=== PATIENT | female | born 1940 | race Caucasian/White ===

== ENCOUNTER 2016-11-06 08:54 | Outpatient (CLI) | payer MEDICARE, OTHER ==
[~2016-11-06] VITALS: Ht 154.9 cm; Wt 57.3 kg
[~2016-11-06 08:54] MED LIST: ACCUPRIL20 MG PO; ECOTRIN325 MG PO; HYDROCHLOROTHIA25 MG PO; PLAVIX75 MG PO; PREDNISONE1 MG PO; TENORMIN25 MG PO; ULTRAM50 MG PO
[2016-11-06] MEDS ORDERED: ZETIA10 MG PO (09:26)
[2016-11-06 09:33] VITALS: BP 122/60; Ht 154.9 cm; Wt 57.3 kg
--- NOTE | 2016-11-06 13:09 | NUR ---
1215--IV DC'D. DISCHARGE INSTRUCTIONS GIVEN, PT VERBALIZES UNDERSTANDING. PT OFF UNIT VIA WC. MIMI MITCHELL
== END 2016-11-06 12:15 | disposition home or self-care (01) ==
LOC: D.OPS 08:54
DX: Z95.2 Presence of prosthetic heart valve (principal)

== ENCOUNTER 2017-06-19 11:07 | Outpatient (CLI) | payer MEDICARE, OTHER ==
[2016-11-06 09:33] VITALS: BMI 23.8
--- NOTE | ~2017-06-19 | HEMODYNAMI ---
PATIENT:ELEONORA ALMEIDA MEDICAL RECORD: [id number] : 36 LOCATION:[facility] ADMISSION DATE: 06/19/17 Generatedon:06/19/201714:40 Patient name: ELEONORA ALMEIDA Patient #: [id number] : 1940 Date of study: 06/19/2017 Page: Of Hemodynamic Procedure Report Patient Data Patient Demographics Procedure consent was obtained First Name: ELEONORA Gender: Female Last Name: JUAN PABLO : 1940 Middle Initial: JOSE Age: 77 year(s) Patient #: [id number] Race: SSN: [id number] Additional ID: [id number] Contact details [address]: [address] [place] [address] State: [place] City: [place] Zip code: [address] Past Medical History Allergies Allergen Reaction Date Comments Reported Other allergy 06/19/2017 Statins, Sulfa, Vasotec, Zocor Admission Admission Data Admission Date: 06/19/2017 Admission Time: 11:07 Arrival Date: 06/19/2017 Arrival Time: 13:30 Admit Source: Other Insurance Payor: Medicare Height (in.): 60 BSA: 1.56 (m2) Height (cm.): 152.4 BMI: 25.58 (kg/m2) Weight (lbs.): 131 Weight (kg.): 59.42 Lab Results Lab Result Date: 06/19/2017 Lab Result Time: 0:00 Biochemistry Name Units Result Min Max BUN mg/dl 20 --(----)*- 7 18 Creatinine mg/dl 0.8 --(-*--)-- 0.6 1.3 CBC Name Units Result Min Max Hemoglobin g/dl 13.1 -*(----)-- 13.5 17.5 Procedure Procedure Types Cath Procedure Diagnostic Procedure LHC LHC w/Coronaries Miscellaneous Procedures Moderate Sedation up to 30 minutes Procedure Description Procedure Date Procedure Date: 06/19/2017 Procedure Start Time: 14:25 Procedure End Time: 14:37 Procedure Staff Name Function Luis Carlos Claudio MD Performing Physician Marisela Day RT Scrub Julio Bell RN Nurse Rox Barth RT Monitor Indication Angina Procedure Data Cath Procedure Fluoroscopy Diagnostic fluoroscopy Total fluoroscopy Time: 1.5 time: 1.5 min min Diagnostic fluoroscopy Total fluoroscopy dose: 177 dose: 177 mGy mGy Contrast Material Contrast Material Type Amount (ml) Isovue 300 55 Entry Location Entry Primary Successful Side Size Upsize Upsize Entry Closure Succes sful Closure Location (Fr) 1 (Fr) 2 (Fr) Remarks Device Remarks Femoral Right 5 Fr Exoseal artery Estimated blood loss: 5 ml Diagnostic catheters Device Type Used For End Catheter Placement Diagnostic Infinity 5Fr Left Coronary AL 2 catheter Angiography Cordis 5Fr 3DRC Catheter Right Coronary (MP) Angiography Cordis 5Fr Pigtail LV Angiography Catheter (MP) Procedure Complications No complications Procedure Medications Medication Administration Route Dosage Oxygen NC 2 l/min Lidocaine 2% added to field 20 Heparin Flush Bag added to field 2 bags (1000units/500ml NS) 0.9% NaCl I.V. 100 ml/hr Versed I.V. 1 mg Fentanyl I.V. 50 mcg Versed I.V. 0.5 mg Fentanyl I.V. 25 mcg Hemodynamics Rest BSA: 1.56 (m2) HGB: 13.1 (g/dl) O2 Consumption: Estimated: 137.87 (ml/min) O2 Co nsumption indexed: Estimated:88.38 (ml/min/m) Heart Rate: 65 (bpm) Pressure Samples Time Site Value (mmHg) Purpose Heart Use Rate(bpm) 14:33 LV 144/57,60 Snapshot 75 Snapshots Pre Cath Intra NCS Post Cath Vital Signs Time Heart Resp SPO2 NIBP (mmHg) Rhythm Pain Sedation Rate (ipm) (%) Status Level (bpm) 14:08:10 67 13 99 134/54(104) NSR 0 (11) 10(A) , No pain 14:13:25 86 16 100 126/65(99) NSR 0 (11) 10(A) , No pain 14:17:43 72 17 100 122/53(92) NSR 0 (11) 10(A) , No pain 14:21:59 72 16 99 124/52(105) NSR 0 (11) 10(A) , No pain 14:26:16 73 15 99 106/54(77) NSR 0 (11) 9(A) , No pain 14:30:28 74 18 100 126/50(102) NSR 0 (11) 9(A) , No pain 14:34:46 75 16 100 134/53(93) NSR 0 (11) 9(A) , No pain 14:39:36 72 16 100 128/49(96) NSR 0 (11) 10(A) , No pain Medications Time Medication Route Dose Verified Delivered Reason Notes Effe ctiveness by by 14:16:10 Oxygen NC 2 Luis Carlos Buffie used for l/min González Bell RN procedure 14:16:18 Lidocaine 2% added 20ml Luis Carlos Luis Carlos for local to vial González Claudio MD anesthetic field 14:16:27 Heparin Flush added 2 Luis Carlos Luis Carlos used for Bag to bags González Claudio MD procedure (1000units/500ml field NS) 14:16:38 0.9% NaCl I.V. 100 Luis Carlos Buffie Per ml/hr González Bell RN physician 14:21:21 Versed I.V. 1 mg Luis Carlos Buffie for González Bell RN sedation 14:21:27 Fentanyl I.V. 50 Luis Carlos Buffie for mcg González Bell RN sedation 14:30:07 Versed I.V. 0.5 Luis Carlos Buffie for mg González Bell RN sedation 14:30:10 Fentanyl I.V. 25 Luis Carlos Buffie for mcg González Bell RN sedation Procedure Log Time Note 13:45:01 Julio Bell RN sent for patient. Start room use. 13:56:16 Informed consent obtained and on chart 13:58:20 Patient allergic to Other allergyStatins, Sulfa, Vasotec, Zocor 13:58:23 Admit Source: Other 13:58:27 Arrival Date: 06/19/2017 1:30:00 PM 13:58:33 Insurance Payor : Medicare 13:58:47 Patient Height : 152.4 cm 13:58:51 Patient Weight : 59.42 kg 14:00:37 Lab Result : BUN 20 mg/dl 14:00:37 Lab Result : Hemoglobin 13.1 g/dl 14:00:37 Lab Result : Creatinine 0.8 mg/dl 14:00:42 Diagnostic Cath Status : Elective 14:00:58 Indication : Angina 14:01:10 Time tracking: Regular hours 14:01:13 Plan of Care:Hemodynamics will remain stable., Cardiac rhythm will remain stable., Comfort level will be maintained., Respiratory function will remain adequate., Patient/ family verbilizes understanding of procedure., Procedure tolerated without complication., Recovers from procedure without complications.. 14:01:19 Patient received from Pre/Post Procedure Room to [facility] 2 Alert and oriented. Tansferred to table in Supine position. 14:01:20 Warm blankets applied, and huy hugger turned on for patient comfort. 14:01:20 Correct patient and procedure confirmed by team. 14:01:21 ECG and BP/O2 sat monitors applied to patient. 14:06:58 Vital chart was started 14:06:59 Baseline sample Acquired. 14:07:03 Rhythm: sinus rhythm 14:07:05 Full Disclosure recording started 14:08:23 H&P Date Dictated: 05/30/2017 Within 30 days and on chart., H&P Addendum completed by physician on day of procedure. (MUST COMPLETE FOR ALL OUTPATIENTS). 14:08:25 Pre-procedure instructions explained to patient. 14:08:25 Pre-op teaching completed and patient verbalized understanding. 14:08:26 Family in waiting room. 14:08:29 Patient NPO since Midnight. 14:08:34 Is the patient allergic to Iodine/contrast media? No. 14:08:35 Was the patient premedicated? No 14:08:39 Is patient on blood thinner?No 14:08:43 Patient diabetic? No. 14:08:45 Patient not . Patient is over age 55. 14:08:47 Previous problem with sedation/anesthesia? No ? 14:08:50 Snore? Yes 14:08:51 Sleep apnea? Yes 14:08:53 Deviated septum? No 14:08:54 Opens mouth fully? Yes 14:08:55 Sticks out tongue? Yes 14:08:58 Airway obstruction? No ? 14:09:01 Dentures? Yes ? 14:09:04 Pre procedure: right dorsailis pedis pulse 1+ Palpable, but thready & weak; easily obliterated 14:09:06 Pre procedure: left dorsailis pedis pulse 1+ Palpable, but thready & weak; easily obliterated 14::09 Patient pain scale 0/10 ?. 14:09:33 IV patent on arrival in left forearm with 0.9% NaCl at O. 14::36 Lab results completed and on chart. 14:09:40 Right groin area was prepped with chlora-prep and draped in sterile fashion 14:: Alarms reviewed by R. N. 14:: Sharps counted by scrub and verified by R.N. 14::33 Physician arrived 14:: --------ALL STOP TIME OUT------ 14::34 Final Timeout: patient, procedure, and site verified with staff and physician. All members of the team are in agreement. 14:11:37 Right groin site verified by team. 14::40 Physical assessment completed. ASA score P 2 - A patient with mild systemic disease as per Luis Carlos Claudio MD. 14:11:44 Sedation plan: IV Moderate Sedation Versed, Fentanyl 14:11:55 Use device set Femoral Dx 14:11:56 Acist Syringe opened to sterile field. 14:11:57 Bag Decanter opened to sterile field. 14:11:57 Medline Cath Pack opened to sterile field. 14:11:58 Terumo 5Fr [place] Sheath opened to sterile field. 14:11:58 St Enrique 260cm J .035 wire opened to sterile field. 14:11:59 Acist Hand Control opened to sterile field. 14:11:59 Acist Manifold opened to sterile field. 14:12:00 Diagnostic Infinity 5Fr Multipack catheter opened to sterile field. 14:12:00 Tegaderm 4 x 4 opened to sterile field. 14:16:10 Oxygen 2 l/min NC was administered by Julio Bell RN; used for procedure; 14:16:18 Lidocaine 2% 20ml vial added to field was administered by Luis Carlos Claudio MD; for local anesthetic; 14:16:27 Heparin Flush Bag (1000units/500ml NS) 2 bags added to field was administered by Luis Carlos Claudio MD; used for procedure; 14:16:38 0.9% NaCl 100 ml/hr I.V. was administered by Julio Bell RN; Per physician; 14:19:58 Zero performed for pressure channel P1 14:20:12 Zero performed for pressure channel P1 14::21 Versed 1 mg I.V. was administered by Julio Bell RN; for sedation; 14::27 Fentanyl 50 mcg I.V. was administered by Julio Bell RN; for sedation; 14:25:48 Procedure started. 14:25:52 Local anesthetic to right femoral artery with Lidocaine 2% by Luis Carlos Claudio MD.INITIAL ACCESS ONLY 14:26:00 A 5 Fr sheath was inserted into the Right Femoral artery 14:29:28 A Diagnostic Infinity 5Fr AL 2 catheter was advanced over the wire and used for Left Coronary Angiography. 14:30:04 LCA angiography performed. 14:30:07 Versed 0.5 mg I.V. was administered by Julio Bell RN; for sedation; 14:30:07 Injector settings: Ml/sec: 3, Volume: 6, 14:30:10 Fentanyl 25 mcg I.V. was administered by Julio Bell RN; for sedation; 14:31:06 Catheter removed. 14:31:11 A Cordis 5Fr 3DRC Catheter (MP) was advanced over the wire and used for Right Coronary Angiography. 14:32:07 RCA angiography performed. 14:32:10 Injector settings: Ml/sec: 3, Volume: 6, 14:32:32 Catheter removed. 14:32:38 A Cordis 5Fr Pigtail Catheter (MP) was advanced over the wire and used for LV Angiography. 14:33:58 LV hemodynamics recorded. 14:33:59 LV gram done using FUENTES 14:34:03 Injector settings: Ml/sec: 5, Volume: 15, 14:34:48 EF : 55 % 14:34:55 Catheter removed. 14:35:06 Cordis 5Fr Exoseal opened to sterile field. 14:35:26 Sheath removed intact; hemostasis achieved with Exoseal to the Right Femoral artery. 14:35:57 Procedure ended.(Physican Out) 14:36:37 Fluoroscopy time 01.50 minutes. 14:36:41 Fluoroscopy dose: 177 mGy 14:36:41 Flurop Dose total: 177 14:36:46 Contrast amount:Isovue 300 55ml. 14:36:47 Sharps counted by scrub and verified by R.N. 14:36:49 Insertion/operative site no bleeding no hematoma. 14:36:52 Post-op/insertion site Right Femoral artery dressed using a 4 x 4 and Tegaderm. 14:36:54 Post right femoral artery:stable 14:36:56 Post Procedure Pulses reassessed and unchanged 14:36:58 Post procedure rhythm: unchanged. 14:37:01 Estimated blood loss: 5 ml 14:37:02 Post procedure instruction explained to patient.Patient verbalizes understanding. 14:37:02 Patient needs reinforcement of post procedure teaching. 14:37:19 Procedure type changed to Cath procedure, Diagnostic procedure, LHC, LHC w/Coronaries, Miscellaneous Procedures, Moderate Sedation up to 30 minutes 14:37:21 Procedure and supply charges have been captured, reviewed, submitted and are correct. 14:37:26 Procedure Complication : No complications 14:37:28 Vital chart was stopped 14:37:28 See physician's report for complete and final results. 14:37:30 Report given to Pre/Post Procedure Room. 14:37:38 Patient transfered to Pre/Post Procedure Room with Stretcher. 14:37:40 Procedure ended. 14:37:40 Full Disclosure recording stopped 14:37:43 End room use (Document Last) Device Usage Item Name Manufacture Quantity Catalog Hospital Part Current Minimal Lo t# / Number Charge Number Stock Stock Serial# Code Acist Acist 1 [id number] [id number] [id number] 20 Syringe [employer] Bag Microtek 1 2002S 501991 93419 [id number] 5 [employer] Medline Cardinal 1 [id number] [id number] 02490 086570 5 Cath Pack Health Terumo 5Fr Terumo 1 [id number] 992826 134590 [address] Enrique 1 [id number] 433551 323969 358536 30 260cm J .035 wire Acist Hand Acist 1 96568 278226 781034 858470 5 Control [employer] Inc Acist Acist 1 15945 942202 285432 915287 5 Manifold [employer] Diagnostic Cardinal 1 [id number] 240854 42022 156126 30 ShopSocially 5Fr Multipack catheter Tegaderm 4 3M 1 1626W 349676 030204 630258 5 x 4 Diagnostic Cardinal 1 [id number] 348278 532606 593171 15 ShopSocially 5Fr AL 2 catheter Cordis 5Fr Cardinal 1 [id number] 5 3DRC Health Catheter (MP) Cordis 5Fr Cardinal 1 [id number] 5 Pigtail Health Catheter (MP) Cordis 5Fr Cardinal 1 EX500 862625 003766 199430 10 [facility] Health Signature Audit [place] Stage Time Signature Unsigned Intra-Procedure 06/19/2017 Rox Barth 2:40:09 PM RT(R) Signatures Monitor : Rox Barth RT Signature : Date : Time : [place] [id number] [facility] [address]
[~2017-06-19 11:07] MED LIST changes: +ZETIA10 MG PO
[2017-06-19] MEDS ORDERED: NORVASC5 MG PO (11:41)
[2017-06-19] MEDS ORDERED: PROTONIX40 MG PO (11:41)
[2017-06-19] MEDS ORDERED: FLUTICASONE PRO16 GM NASAL (11:42)
[2017-06-19] MEDS ORDERED: CLARITIN 10 MG10 MG PO (11:42)
[2017-06-19 12:04] LABS: BASOPHILS 0.7 % (0-2); EOSINOPHILS 2.4 % (0-7); HEMATOCRIT 38.3 % (36.0-48.0); HEMOGLOBIN 13.1 g/dL (12-16); LYMPHOCYTES 27.8 % (15-50); MCH 30.8 pg (26.0-34.0); MCHC 34.2 g/dL (31.0-37.0); MCV 90.1 fL (80.0-100.0); MEAN PLATELET VOLUME 10.3 fL (7.4-10.4); MONOCYTES 10.6 % (2-11); NEUTROPHILS 58.5 % (40-80); PLATELET COUNT 194 10x3/uL (130-400); RBC 4.25 10x6/uL (4.00-5.40); RDW 12.6 % (11.5-14.5); WBC 5.5 10x3/uL (4.8-10.8)
[2017-06-19 12:19] LABS: ANION GAP 11.4 mmol/L (8-16); CALCIUM 9.2 mg/dL (8.5-10.1); CARBON DIOXIDE 33.6 mmol/L (21.0-32.0); CREATININE - SERUM 0.8 mg/dL (0.6-1.3)
--- NOTE | 2017-06-19 15:00 | NUR ---
RIGHT GROIN CDI, NO BLEEDING OR HEMATOMA AT SITE. SOFT TO TOUCH, IV INFUSING PER GRAVITY- NO SWELLING AT SITE
--- NOTE | 2017-06-19 15:30 | NUR ---
NO CHANGE IN RIGHT GROIN, VSS, FAMILY AT SIDE
--- NOTE | 2017-06-19 16:55 | NUR ---
IV D'C WITH CATH TIP INTACT, WRITTEN AND VERBAL D'C INSTRUCTIONS GIVEN AND VERBAL UNDERSTANDING NOTED, D'C HOME WITH
== END 2017-06-19 17:00 | disposition home or self-care (01) ==
LOC: D.CATH 11:07
PROVIDERS: Internal Medicine Cardiovascular Disease
DX: I25.119 Atherosclerotic heart disease of native coronary artery with unspecified angina pectoris (principal); Z95.5 Presence of coronary angioplasty implant and graft; Z95.2 Presence of prosthetic heart valve; Z01.812 Encounter for preprocedural laboratory examination

== ENCOUNTER 2017-12-10 09:01 | Outpatient (CLI) | payer MEDICARE, OTHER ==
[~2017-12-10] VITALS: Ht 154.9 cm; Wt 58.2 kg
[~2017-12-10 09:01] MED LIST changes: +CLARITIN 10 MG10 MG PO; +FLUTICASONE PRO16 GM NASAL; +NORVASC5 MG PO; +PROTONIX40 MG PO
[2017-12-10 09:49] VITALS: BP 115/48; Ht 154.9 cm; Wt 58.2 kg
== END 2017-12-10 12:19 | disposition home or self-care (01) ==
LOC: D.OPS 09:01
DX: Z95.2 Presence of prosthetic heart valve (principal)

== ENCOUNTER 2018-10-02 10:25 | Outpatient (CLI) | payer MEDICARE, OTHER ==
[~2018-10-02] VITALS: Ht 152.4 cm; Wt 58.2 kg
[2018-10-02 12:17] VITALS: BP 127/57; Ht 152.4 cm; Wt 58.2 kg
== END 2018-10-02 13:40 | disposition home or self-care (01) ==
LOC: D.OPS 10:25
DX: Z95.2 Presence of prosthetic heart valve (principal)

== ENCOUNTER → 2019-02-13 10:28 | Outpatient (CLI) | payer MEDICARE, BC ==
[2018-10-02 12:17] VITALS: BMI 25.0
== END | disposition home or self-care (01) ==
LOC: D.HCCARDIO 10:28
PROVIDERS: ATTEND Internal Medicine Cardiovascular Disease
DX: I25.10 Atherosclerotic heart disease of native coronary artery without angina pectoris (principal)

== ENCOUNTER 2019-03-05 11:21 | Outpatient (CLI) | payer MEDICARE, BC ==
[~2019-03-05] VITALS: Ht 152.4 cm; Wt 56.8 kg
--- NOTE | ~2019-03-05 | HEMODYNAMI ---
PATIENT:ELEONORA ALMEIDA MEDICAL RECORD: [id number] : 36 LOCATION:[facility] ADMISSION DATE: 03/05/19 Generatedon:03/05/201914:37 Patient name: ELEONORA ALMEIDA Patient #: [id number] : 1940 Date of study: 03/05/2019 Page: Of Hemodynamic Procedure Report Patient Data Patient Demographics Procedure consent was obtained First Name: ELEONORA Gender: Female Last Name: JUAN PABLO : 1940 Middle Initial: JOSE Age: 79 year(s) Patient #: [id number] Race: SSN: [id number] Additional ID: [id number] Contact details [address]: [address] [place] [address] State: [place] City: [place] Zip code: [address] Past Medical History Allergies Allergen Reaction Date Comments Reported Other allergy 06/19/2017 Statins, Sulfa, Vasotec, Zocor Admission Admission Data Admission Date: 03/05/2019 Admission Time: 11:21 Lab Results Lab Result Date: 03/05/2019 Lab Result Time: 0:00 Biochemistry Name Units Result Min Max BUN mg/dl 23 --(----)-* 7 18 Creatinine mg/dl 0.9 --(-*--)-- 0.6 1.3 CBC Name Units Result Min Max Hemoglobin g/dl 12.4 *-(----)-- 13.5 17.5 Procedure Procedure Types Cath Procedure Diagnostic Procedure LHC LHC w/Coronaries Procedure Description Procedure Date Procedure Date: 03/05/2019 Procedure Start Time: 14:25 Procedure End Time: 14:36 Procedure Staff Name Function Luis Carlos Claudio MD Performing Physician Marisela Day RT Monitor Aliyah Almeida RN Nurse Rox Barth RT Scrub Procedure Data Cath Procedure Fluoroscopy Diagnostic fluoroscopy Total fluoroscopy Time: 2.6 time: 2.6 min min Diagnostic fluoroscopy Total fluoroscopy dose: 272 dose: 272 mGy mGy Contrast Material Contrast Material Type Amount (ml) Isovue 300 65 Entry Location Entry Primary Successful Side Size Upsize Upsize Entry Closure Succes sful Closure Location (Fr) 1 (Fr) 2 (Fr) Remarks Device Remarks Femoral Right 5 Fr Exoseal artery Estimated blood loss: 10 ml Diagnostic catheters Device Type Used For End Catheter Placement MULTIPACK Pigtail 5 Fr Procedure catheter MULTIPACK JL 4.0 5Fr Procedure catheter MULTIPACK 3DRC 5Fr Procedure catheter Procedure Complications No complications Procedure Medications Medication Administration Route Dosage 0.9% NaCl I.V. 100 ml/hr Oxygen etCO2 Nasal cannula 2 l/min Lidocaine 2% added to field 20 Heparin Flush Bag added to field 2 bags (1000units/500ml NS) Versed I.V. 2 mg Fentanyl I.V. 50 mcg Fentanyl I.V. 50 mcg Hemodynamics Rest HGB: 12.4 (g/dl) Heart Rate: 82 (bpm) Snapshots Pre Cath Intra NCS Post Cath Vital Signs Time Heart Resp SPO2 etCO2 NIBP (mmHg) Rhythm Pain Sedation Rate (ipm) (%) (mmHg) Status Level (bpm) 14:10:03 80 19 99 26.1 146/72(90) NSR 0 (11) 10(A) , No pain 14:14:22 83 17 99 26.8 152/62(104) NSR 0 (11) 10(A) , No pain 14:18:46 66 11 98 17.9 123/47(78) NSR 0 (11) 10(A) , No pain 14:22:58 70 13 99 17.8 125/56(90) NSR 0 (11) 10(A) , No pain 14:27:12 66 11 99 18.96 138/54(101) NSR 0 (11) 9(A) , No pain 14:31:30 68 10 99 32.7 123/53(89) NSR 0 (11) 10(A) , No pain 14:35:42 77 12 99 40.2 127/57(87) NSR 0 (11) 10(A) , No pain Medications Time Medication Route Dose Verified Delivered Reason Notes Eff ectiveness by by 14:16:47 0.9% NaCl I.V. 100 Luis Carlos Aliyah used for ml/hr González Almeida construction coordinator 14:16:55 Oxygen etCO2 2 Luis Carlos Aliyah used for Nasal l/min González Almeida procedure cannula RN 14:17:00 Lidocaine 2% added 20ml Luis Carlos Luis Carlos for local to vial Gonzálze Claudio MD anesthetic field 14:17:04 Heparin Flush added 2 Luis Carlos Luis Carlos used for Bag to bags González Claudio MD procedure (1000units/500ml field NS) 14:17:36 Versed I.V. 2 mg Luis Carlos Aliyah for González Almeida sedation RN 14:17:43 Fentanyl I.V. 50 Luisc Arlos Aliyah for mcg González Almeida sedation RN 14:23:11 Fentanyl I.V. 50 Luis Carlos Aliyah for mcg González Almeida sedation ed special education teacher Log Time Note 13:59:00 Aliyah Almeida RN sent for patient. Start room use. 13:59:01 Time tracking: Regular hours (M-F 7:00 - 5:00) 13:59:04 Plan of Care:Hemodynamics will remain stable., Cardiac rhythm will remain stable., Comfort level will be maintained., Respiratory function will remain adequate., Patient/ family verbilizes understanding of procedure., Procedure tolerated without complication., Recovers from procedure without complications.. 14:08:51 Patient received from Pre/Post Procedure Room to [facility] 2 Alert and oriented. Tansferred to table in Supine position. 14:08:53 Warm blankets applied, and huy hugger turned on for patient comfort. 14:08:53 Correct patient and procedure confirmed by team. 14:08:55 Signed procedure consent form obtained from patient. 14:08:55 ECG and BP/O2 sat monitors applied to patient. 14:08:57 Vital chart was started 14:08:58 Baseline sample Acquired. 14:09:02 Rhythm: sinus rhythm 14:09:04 Full Disclosure recording started 14:09:10 H&P Date Dictated: 03/05/2019 Within 30 days and on chart., H&P Addendum completed by physician on day of procedure. (MUST COMPLETE FOR ALL OUTPATIENTS). 14:09:12 Pre-procedure instructions explained to patient. 14:09:12 Pre-op teaching completed and patient verbalized understanding. 14:09:13 Family in waiting room. 14:09:15 Patient NPO since Midnight. 14:09:16 Is the patient allergic to Iodine/contrast media? No. 14:09:17 Was the patient premedicated? No 14:09:19 Is patient on blood thinner?No 14:09:24 Patient diabetic? No. 14:10:49 Snore? Yes 14:10:50 Sleep apnea? Yes 14:11:07 Dentures? Yes uppers in tight 14:11:21 Patient pain scale 0/10 ?. 14:16:27 Pre procedure: right dorsailis pedis pulse 1+ Palpable, but thready & weak; easily obliterated 14:16:47 0.9% NaCl 100 ml/hr I.V. was administered by Aliyah Almeida RN; used for procedure; 14:16:55 Oxygen 2 l/min etCO2 Nasal cannula was administered by Aliyah Almeida RN; used for procedure; 14:16:56 Lab Result : Creatinine 0.9 mg/dl 14:16:56 Lab Result : BUN 23 mg/dl 14:16:56 Lab Result : Hemoglobin 12.4 g/dl 14:17:00 Lidocaine 2% 20ml vial added to field was administered by Luis Carlos Claudio MD; for local anesthetic; 14:17:03 Right groin area was prepped with chlora-prep and draped in sterile fashion 14:17:04 Heparin Flush Bag (1000units/500ml NS) 2 bags added to field was administered by Luis Carlos Claudio MD; used for procedure; 14:17:04 Alarms reviewed by R. N. 14:17:05 Sharps counted by scrub and verified by R.N. 14:17:06 Physician paged 14:17:11 Physician arrived 14:17:12 --------ALL STOP TIME OUT------ 14:17:16 Final Timeout: patient, procedure, and site verified with staff and physician. All members of the team are in agreement. 14:17:20 Right groin site verified by team. 14:17:26 Maximum allowable Isovue 300 dose 300ml. Physician notified. (300ml for normal creatinines. For patients with creatinine of 1.7 or higher multiply weight(kg) x 5 divided by creatinine.) 14:17:36 Versed 2 mg I.V. was administered by Aliyah Almeida RN; for sedation; 14:17:39 Fire Safety Assessment: A--An alcohol-based skin anteseptic being used preoperatively., C--Open oxygen or nitrous oxide is being used., D--An ESU, laser, or fiber-optic light is being used. 14:17:43 Fentanyl 50 mcg I.V. was administered by Aliyah Almeida RN; for sedation; 14:17:46 Sedation plan: IV Moderate Sedation Medication:Versed, Fentanyl 14:20:49 Use device set Femoral Dx 14:20:50 ACIST Syringe (57366) opened to sterile field. 14:20:51 Bag Decanter (2002S) opened to sterile field. 14:20:51 Medline Cath Pack ([id number]) opened to sterile field. 14:20:52 DIAGNOSTIC WIRE .035 260cm J wire (518752) opened to sterile field. 14:20:53 ACIST Hand Control (91336) opened to sterile field. 14:20:53 ACIST Manifold (13814) opened to sterile field. 14:20:54 DIAGNOSTIC Multipack 5Fr catheter set ([id number]) opened to sterile field. 14:20:56 SHEATH 5FR [place] (LOM040) opened to sterile field. 14:22:08 Zero performed for pressure channel P1 14:23:11 Fentanyl 50 mcg I.V. was administered by Aliyah Almeida RN; for sedation; 14:23:21 Procedure started. 14:25:22 Local anesthetic to right femoral artery with Lidocaine 2% by Luis Carlos Claudio MD.INITIAL ACCESS ONLY 14:25:36 A 5 Fr sheath was inserted into the Right Femoral artery 14:28:37 A MULTIPACK Pigtail 5 Fr catheter was advanced over the wire and used for Procedure. 14:28:56 Aortic Root visualized 14:29:38 Catheter removed. 14:29:47 A MULTIPACK JL 4.0 5Fr catheter was advanced over the wire and used for Procedure. 14:30:21 LCA angiography performed. 14:32:36 Catheter removed. 14:32:48 A MULTIPACK 3DRC 5Fr catheter was advanced over the wire and used for Procedure. 14:33:10 RCA angiography performed. 14:33:12 Catheter removed. 14:33:35 EXOSEAL 5Fr (EX500) opened to sterile field. 14:33:39 Tegaderm 4 x 4 (1626W) opened to sterile field. 14:33:58 Sheath removed intact; hemostasis achieved with Exoseal to the Right Femoral artery. 14:34:01 Procedure ended.(Physican Out) 14:34:17 Fluoroscopy time 02.60 minutes. 14:34:21 Fluoroscopy dose: 272 mGy 14:34:21 Flurop Dose total: 272 14:34:26 Contrast amount:Isovue 300 65ml. 14:34:31 Insertion/operative site no bleeding no hematoma. 14:34:35 Post right femoral artery:stable 14:34:42 Post Procedure Pulses reassessed and unchanged 14:34:48 Post-procedure physical assessment completed. ASA score P 2 - A patient with mild systemic disease as per Luis Carlos Claudio MD. 14:35:17 Post procedure rhythm: sinus rhythm 14:35:28 Estimated blood loss: 10 ml 14:35:31 Post procedure instruction explained to patient.Patient verbalizes understanding. 14:35:40 Procedure and supply charges have been captured, reviewed, submitted and are correct. 14:36:04 Procedure Complication : No complications 14:36:07 Vital chart was stopped 14:36:08 See physician's report for complete and final results. 14:36:10 Report given to Pre/Post Procedure Room. 14:36:16 Patient transfered to Pre/Post Procedure Room with Stretcher. 14:36:19 Procedure ended. 14:36:19 Full Disclosure recording stopped 14:36:22 End room use (Document Last) Device Usage Item Name Manufacture Quantity Catalog Hospital Part Current Minimal L ot# / Number Charge Number Stock Stock Serial# Code ACIST Acist 1 80481 [id number] 387107 113262 20 Syringe Medical (55937) Systems [employer] Bag Microtek 1 193344 55760 993234 5 Decanter Medical Inc. () Medline Medline 1 [id number] 210629 66534 884378 5 Cath Pack ([id number]) DIAGNOSTIC St Enrique 1 657539 425531 524256 060239 30 WIRE .035 260cm J wire (191946) ACIST Hand Acist 1 76267 432808 968168 038042 5 Control Medical (49630) Systems Inc ACIST Acist 1 52881 180697 512903 569485 5 Manifold Medical (54578) Systems Inc DIAGNOSTIC Cardinal 1 VE1998 953669 14768 641743 30 cacaoTV 5Fr catheter set (YC9764) SHEATH 5FR Terumo 1 JIB910 548699 995961 602974 5 [place] (VGT632) MULTIPACK Cardinal 1 455426 5 Pigtail 5 Health Fr catheter MULTIPACK Cardinal 1 186727 5 JL 4.0 5Fr Health catheter MULTIPACK Cardinal 1 705590 5 3DRC 5Fr Health catheter EXOSEAL 5Fr Cardinal 1 EX500 765884 590795 043933 10 (EX500) Health Tegaderm 4 3M 1 1626W 040547 716299 805526 5 x 4 (1626W) Signature Audit Purdum Stage Time Signature Unsigned Intra-Procedure 03/05/2019 Marisela Day 2:37:21 PM RT(R) Signatures Monitor : Marisela Day Signature : RT Date : Time : [id number] [place] [address]
[2019-03-05] MEDS ORDERED: PEPCID40 MG PO (11:38)
[2019-03-05] MEDS ORDERED: ACCUPRIL20 MG PO (11:39)
[2019-03-05 11:45] VITALS: BP 132/51; Ht 152.4 cm; Wt 56.8 kg
[2019-03-05 11:58] LABS: BASOPHILS 0.4 % (0-2); EOSINOPHILS 2.9 % (0-7); HEMATOCRIT 37.3 % (36.0-48.0); HEMOGLOBIN 12.4 g/dL (12-16); IMMATURE GRANULOCYTES 0.2 % (0-5); LYMPHOCYTES 26.4 % (15-50); MCH 29.9 pg (26.0-34.0); MCHC 33.2 g/dL (31.0-37.0); MCV 89.9 fL (80.0-100.0); MEAN PLATELET VOLUME 10.3 fL (7.4-10.4); MONOCYTES 9.1 % (2-11); PLATELET COUNT 184 10x3/uL (130-400); RBC 4.15 10x6/uL (4.00-5.40); RDW 12.7 % (11.5-14.5); WBC 5.6 10x3/uL (4.8-10.8)
[2019-03-05 12:03] LABS: ANION GAP 11.4 mmol/L (8-16); CALCIUM 9.4 mg/dL (8.5-10.1); CARBON DIOXIDE 30.6 mmol/L (21.0-32.0); CREATININE - SERUM 0.9 mg/dL (0.6-1.3)
--- NOTE | 2019-03-05 15:05 | NUR ---
2L NC, NO RESP DISTRESS. RIGHT GROIN 5F EXOSEAL CDI, NO BLEEDING OR HEMATOMA NOTED. VOIDED 300CC INTO BEDPAN. VSS. NO C/O PAIN OR NAUSEA. FAMILY AT BEDSIDE, CALL LIGHT WITHIN REACH.
--- NOTE | 2019-03-05 15:40 | NUR ---
HOB ELEVATED 30 DEGREES. RIGHT GROIN 5F EXOSEAL CDI, NO BLEEDING NOTED. SIPPING ON DRINK AND EATING SANDWICH WITH NO C/O NAUSEA. VSS. WILL CONTINUE TO MONITOR CLOSELY.
--- NOTE | 2019-03-05 16:15 | NUR ---
LEFT PIV D/C'D WITH CATHETER INTACT, BAND AID TO SITE/ UP TO BEDSIDE TO GET DRESSED. RIGHT GROIN 5F EXOSEAL CDI, NO BLEEDING NOTED.
--- NOTE | 2019-03-05 16:25 | NUR ---
DISCHARGE INSTRUCTIONS GIVEN TO PT AND , BOTH VERBALIZED UNDERSTANDING.
--- NOTE | 2019-03-05 16:38 | NUR ---
TAKEN OUT VIA WHEELCHAIR BY CATH SOFTWOOD FALLER. LEFT FACILITY WITH FAMILY AND ALL PERSONAL BELONGINGS.
== END 2019-03-05 16:38 | disposition home or self-care (01) ==
LOC: D.CATH 11:21
PROVIDERS: ATTEND Internal Medicine Cardiovascular Disease
DX: I25.119 Atherosclerotic heart disease of native coronary artery with unspecified angina pectoris (principal); Z95.5 Presence of coronary angioplasty implant and graft; Z95.4 Presence of other heart-valve replacement; Z01.812 Encounter for preprocedural laboratory examination; I10 Essential (primary) hypertension; E78.5 Hyperlipidemia, unspecified; Z79.82 Long term (current) use of aspirin; Z79.891 Long term (current) use of opiate analgesic; Z79.899 Other long term (current) drug therapy

== ENCOUNTER 2019-05-30 01:28 | Emergency (ER) | payer MEDICARE, BC ==
[~2019-05-30] VITALS: Ht 152.4 cm; Wt 59.1 kg
[~2019-05-30 01:28] MED LIST changes: +PEPCID40 MG PO
[2019-05-30 01:34] VITALS: Ht 152.4 cm; Wt 59.1 kg
[2019-05-30] MEDS ORDERED: ASPIRIN81 MG PO (01:36)
[2019-05-30 01:57] LABS: BASOPHILS 0.7 % (0-2); EOSINOPHILS 4.6 % (0-7); HEMATOCRIT 37.1 % (36.0-48.0); HEMOGLOBIN 12.5 g/dL (12-16); LYMPHOCYTES 33.5 % (15-50); MCHC 33.7 g/dL (31.0-37.0); MEAN PLATELET VOLUME 10.4 fL (7.4-10.4); MONOCYTES 12.9 % (2-11); NEUTROPHILS 48.3 % (40-80); PLATELET COUNT 187 10x3/uL (130-400); RBC 4.17 10x6/uL (4.00-5.40); RDW 12.8 % (11.5-14.5); WBC 5.4 10x3/uL (4.8-10.8)
[2019-05-30 02:12] LABS: ALKALINE PHOSPHATASE 65 U/L (46-116); ALT (SGPT) 17 U/L (10-68); BILIRUBIN - TOTAL 0.48 mg/dL (0.2-1.3); CALC OSMOLALITY 282 mosm/kg (275-300); CALCIUM 9.5 mg/dL (8.5-10.1); CARBON DIOXIDE 33.9 mmol/L (21.0-32.0); CHLORIDE - SERUM 101 mmol/L (98-107); CREATININE - SERUM 0.8 mg/dL (0.6-1.3); GLUCOSE 91 mg/dL (74-106); POTASSIUM - SERUM 3.5 mmol/L (3.5-5.1); PROTEIN - SERUM 7.7 g/dL (6.4-8.2); SODIUM 140 mmol/L (136-145); UREA NITROGEN 24 mg/dL (7-18); eGFR NON AFRICAN AMERICAN 73 mL/min (90-120)
[2019-05-30 02:14] LABS: AMYLASE - SERUM 41 U/L (25-115); LIPASE 225 U/L (73-393)
[2019-05-30 02:15] LABS: TROPONIN-I < 0.017 ng/mL (0.000-0.060)
[2019-05-30 02:55] LABS: APPEARANCE CLEAR (CLEAR); BILIRUBIN NEGATIVE (NEGATIVE); COLOR YELLOW (YELLOW); GLUCOSE NEGATIVE (NEGATIVE); KETONE NEGATIVE (NEGATIVE); NITRITE NEGATIVE (NEGATIVE); PROTEIN NEGATIVE (NEGATIVE); SPECIFIC GRAVITY 1.005 (1.005-1.020); UROBILINOGEN NORMAL (NORMAL)
[2019-05-30 05:13] VITALS: BP 138/71
== END 2019-05-30 05:13 | disposition home or self-care (01) ==
LOC: D.ER 01:28
PROVIDERS: Family Medicine
DX: K21.9 Gastro-esophageal reflux disease without esophagitis (principal)

== ENCOUNTER → 2019-08-01 12:02 | Outpatient (CLI) | payer MEDICARE, BC ==
[2019-05-30 01:34] VITALS: BMI 25.4
[~2019-08-01 12:02] MED LIST changes: +ASPIRIN81 MG PO
== END | disposition home or self-care (01) ==
LOC: D.US 12:02
PROVIDERS: ATTEND Internal Medicine Cardiovascular Disease
DX: I65.23 Occlusion and stenosis of bilateral carotid arteries (principal)

== ENCOUNTER → 2020-04-20 13:32 | Outpatient (CLI) | payer MEDICARE, BC ==
[2019-05-30 01:34] VITALS: BMI 25.4
== END | disposition home or self-care (01) ==
LOC: D.HCCECHO 13:30
PROVIDERS: ATTEND Internal Medicine Cardiovascular Disease
DX: I25.10 Atherosclerotic heart disease of native coronary artery without angina pectoris (principal)